=== PATIENT | female | born 1970 | race Asian ===

== ENCOUNTER 2016-04-11 10:17 | Emergency (ER) | payer OTHER ==
[~2016-04-11] VITALS: Ht 154.9 cm; Wt 42.5 kg
[2016-04-11] MEDS ORDERED: FentaNYL CITRATE-PF 100 MCG/2 ML VIAL ONE (11:47)
[2016-04-11] MEDS ORDERED: HEPARIN SODIUM 1000 UNITS/NS 500 ML ONE (11:47)
[2016-04-11] MEDS ORDERED: LIDOCAINE HCL/PF 1% 30 ML VIAL ONE (11:48)
[2016-04-11] MEDS ORDERED: ONDANSETRON HCL 4 MG/2 ML VIAL IVP ONE (15:00)
[2016-04-11] MEDS ORDERED: MORPHINE SULFATE 4 MG/ML SYRINGE IVP ONE (15:00)
[2016-04-11] MEDS ORDERED: LORazepam 1 MG TABLET PO ONE (15:15)
[2016-04-11] MEDS ORDERED: ONDANSETRON HCL 4 MG TABLET PO ONE (16:30)
[2016-04-11] MEDS ORDERED: OxyCODONE HCL/ACETAMINOPHEN 10-325 MG TABLET PO ONE (16:30)
[2016-04-11 16:45] VITALS: BP 110/75
== END 2016-04-11 17:01 | disposition home or self-care (01) ==
LOC: EMS 10:20
DX: J93.9 Pneumothorax, unspecified (principal); J90 Pleural effusion, not elsewhere classified
CPT/HCPCS: 32550; 36245; 36561; 71010; 76937; 76942; 99284; J1644; J3490; J3010

== ENCOUNTER 2016-04-15 05:54 | Emergency (ER) | payer OTHER ==
[~2016-04-15] VITALS: Ht 157.5 cm; Wt 43.2 kg
[2016-04-15] MEDS ORDERED: MORPHINE SULFATE 4 MG/ML SYRINGE IVP ONE (06:45)
[2016-04-15] MEDS ORDERED: SODIUM CHLORIDE 0.9% 1,000 ML IV ONE (06:45)
[2016-04-15] MEDS ORDERED: ONDANSETRON HCL 4 MG/2 ML VIAL IVP ONE (06:45)
[2016-04-15] MEDS ORDERED: HEPARIN SODIUM 1000 UNITS/NS 500 ML ONE (07:56)
[2016-04-15] MEDS ORDERED: IODIXANOL 320 MG/ML 50 ML VIAL ONE ×3 (07:56→16:46)
[2016-04-15 08:59] LABS: BASOPHILS % (AUTO) 0.3 % (0.0-2.0); EOSINOPHILS % (AUTO) 0.6 % (1.0-6.0); MEAN CORPUSCULAR HEMOGLOBIN 31.8 pg (26.0-34.0); MEAN CORPUSCULAR HGB CONC 33.3 G/dL (31.0-37.0); MEAN CORPUSCULAR VOLUME 96 fL (80-100); MONOCYTES # (AUTO) 0.4 K/uL (0.1-1.0); MONOCYTES % (AUTO) 6.6 % (2.0-9.0); NEUTROPHILS # (AUTO) 5.1 K/uL (1.8-7.7); NEUTROPHILS % (AUTO) 77.5 % (40.0-70.0); PLATELET COUNT (AUTO) 272 K/uL (150-450); RED BLOOD CELL COUNT(AUTO) 3.45 MIL/uL (4.00-5.20); RED CELL DISTRIBUTION WIDTH 12.5 % (11.5-14.5); WHITE BLOOD COUNT (AUTO) 6.5 K/uL (4.5-11.0)
[2016-04-15 09:05] LABS: PROTHROMBIN TIME 10.4 SEC (9.4-11.6)
[2016-04-15 09:15] LABS: ALANINE AMINOTRANSFERASE 16 U/L (12-78); ALBUMIN 2.8 g/dL (3.4-5.0); ANION GAP 9 mmol/L (8-16); ASPARTATE AMINOTRANSFERASE 18 U/L (15-37); BILIRUBIN,TOTAL 0.4 mg/dL (0.1-1.0); CALCIUM, TOTAL 8.4 mg/dL (8.8-10.5); CARBON DIOXIDE 29 mmol/L (22-29); CHLORIDE 104 mmol/L (98-107); CREATINE KINASE, TOTAL 31 U/L (26-192); CREATININE 0.53 mg/dL (0.60-1.30); GLOMERULAR FILTR. RATE CALC > 60 mL/min (>60); POTASSIUM 4.1 mmol/L (3.5-5.1); SODIUM SERUM 142 mmol/L (136-145); TOTAL PROTEIN, SERUM 5.7 g/dL (6.4-8.2)
[2016-04-15 09:18] LABS: B-TYPE NATRIURETIC PEPTIDE 12 pg/mL (0-100)
[2016-04-15 09:22] LABS: UREA NITROGEN, BLOOD 3 mg/dL (7-18)
[2016-04-15] MEDS ORDERED: SODIUM CHLORIDE 0.9% 500 ML IV ONE (09:35)
[2016-04-15] MEDS ORDERED: LIDOCAINE 1% 30 ML/SOD BICARB 8.4% 4 ML SQ ONE (09:47)
[2016-04-15] MEDS ORDERED: FentaNYL CITRATE-PF 100 MCG/2 ML VIAL IVP ONE ×5 (09:50→12:20)
[2016-04-15] MEDS ORDERED: MIDAZOLAM HCL 2 MG/2 ML VIAL IVP ONE ×5 (09:50→12:20)
[2016-04-15] MEDS ORDERED: IODIXANOL 320 MG/ML 100 ML VIAL IARTER ONE (10:10)
[2016-04-15] MEDS ORDERED: IODIXANOL 320 MG/ML 50 ML VIAL IARTER ONE ×3 (10:10)
[2016-04-15 15:57] VITALS: BP 115/71
[2016-04-15] MEDS ORDERED: SODIUM BICARBONATE 50 MEQ/50 ML VIAL ONE (16:46)
[2016-04-15] MEDS ORDERED: LIDOCAINE HCL/PF 1% 30 ML VIAL ONE (16:46)
[2016-04-15] MEDS ORDERED: MIDAZOLAM HCL 2 MG/2 ML VIAL ONE ×3 (16:46)
[2016-04-15] MEDS ORDERED: IODIXANOL 320 MG/ML 100 ML VIAL ONE (16:46)
[2016-04-15] MEDS ORDERED: FentaNYL CITRATE-PF 100 MCG/2 ML VIAL ONE ×3 (16:46)
== END 2016-04-15 16:52 | disposition home or self-care (01) ==
LOC: EMS 05:56
DX: J93.9 Pneumothorax, unspecified (principal); R04.2 Hemoptysis; C78.00 Secondary malignant neoplasm of unspecified lung; Z85.42 Personal history of malignant neoplasm of other parts of uterus
CPT/HCPCS: 36415; 71010; 75743; 80053; 82550; 83880; 84484; 85025; 85610; 85730; 93005; 96372; 96374; 96375; 96376; 99285; C1760; C1769 ×2; C1887 ×2; C1892; J1644; J2250; J3010; J3490 ×2; Q9967 ×2

== ENCOUNTER 2016-05-27 07:00 | Emergency (ER) | payer OTHER ==
[~2016-05-27] VITALS: Ht 154.9 cm; Wt 41.4 kg
[2016-05-27] MEDS ORDERED: HYDROCODONE/ACETAMINOPHEN 5-325 MG TABLET PO ONE (08:00)
[2016-05-27] MEDS ORDERED: ONDANSETRON HCL 4 MG TABLET PO ONE (08:00)
[2016-05-27 08:43] LABS: BASOPHILS % (AUTO) 0.4 % (0.0-2.0); EOSINOPHILS % (AUTO) 0.3 % (1.0-6.0); HEMATOCRIT 34.3 % (36-46); HEMOGLOBIN 11.5 g/dL (12.0-16.0); LYMPHOCYTES # (AUTO) 0.6 K/uL (1.0-4.8); MEAN CORPUSCULAR HEMOGLOBIN 31.5 pg (26.0-34.0); MEAN CORPUSCULAR HGB CONC 33.6 G/dL (31.0-37.0); MEAN CORPUSCULAR VOLUME 94 fL (80-100); MONOCYTES # (AUTO) 0.6 K/uL (0.1-1.0); MONOCYTES % (AUTO) 9.3 % (2.0-9.0); NEUTROPHILS # (AUTO) 5.2 K/uL (1.8-7.7); PLATELET COUNT (AUTO) 250 K/uL (150-450); RED BLOOD CELL COUNT(AUTO) 3.65 MIL/uL (4.00-5.20); RED CELL DISTRIBUTION WIDTH 14.4 % (11.5-14.5); WHITE BLOOD COUNT (AUTO) 6.5 K/uL (4.5-11.0)
[2016-05-27 08:53] LABS: ANION GAP 11 mmol/L (8-16); CALCIUM, TOTAL 9.7 mg/dL (8.8-10.5); CARBON DIOXIDE 28 mmol/L (22-29); CHLORIDE 101 mmol/L (98-107); CREATININE 0.56 mg/dL (0.60-1.30); GLOMERULAR FILTR. RATE CALC > 60 mL/min (>60); POTASSIUM 4.1 mmol/L (3.5-5.1); SODIUM SERUM 140 mmol/L (136-145); UREA NITROGEN, BLOOD 11 mg/dL (7-18)
[2016-05-27 08:54] LABS: PROTHROMBIN TIME 10.7 SEC (9.4-11.6)
[2016-05-27 09:05] LABS: ALANINE AMINOTRANSFERASE 18 U/L (12-78); ALBUMIN 3.3 g/dL (3.4-5.0); TOTAL PROTEIN, SERUM 7.9 g/dL (6.4-8.2)
[2016-05-27 09:30] LABS: ASPARTATE AMINOTRANSFERASE 23 U/L (15-37)
[2016-05-27 10:06] LABS: BILIRUBIN,TOTAL 0.4 mg/dL (0.1-1.0)
[2016-05-27] MEDS ORDERED: HEPARIN SODIUM 1000 UNITS/NS 500 ML ONE (10:21)
[2016-05-27] MEDS ORDERED: LIDOCAINE HCL/PF 1% 30 ML VIAL ONE (10:21)
[2016-05-27] MEDS ORDERED: IODIXANOL 320 MG/ML 100 ML VIAL ONE (10:21)
[2016-05-27] MEDS ORDERED: FentaNYL CITRATE-PF 100 MCG/2 ML VIAL ONE ×2 (11:05→12:26)
[2016-05-27] MEDS ORDERED: MIDAZOLAM HCL 2 MG/2 ML VIAL ONE ×2 (11:06→12:26)
[2016-05-27] MEDS ORDERED: IODIXANOL 320 MG/ML 50 ML VIAL ONE ×2 (12:04→12:37)
[2016-05-27] MEDS ORDERED: OxyCODONE HCL/ACETAMINOPHEN 5-325 MG TABLET PO ONE (14:00)
[2016-05-27] MEDS ORDERED: HYDROmorphone 2 MG/ML SYRINGE IVP ONE (14:00)
[2016-05-27] MEDS ORDERED: ONDANSETRON HCL 4 MG/2 ML VIAL ONE (14:05)
[2016-05-27 15:20] VITALS: BP 104/72
[2016-05-27] MEDS ORDERED: ONDANSETRON HCL 4 MG/2 ML VIAL IVP ONE (16:15)
== END 2016-05-27 18:16 | disposition home or self-care (01) ==
LOC: EMS 07:01
DX: R04.2 Hemoptysis (principal); C78.00 Secondary malignant neoplasm of unspecified lung; Z85.42 Personal history of malignant neoplasm of other parts of uterus; M41.9 Scoliosis, unspecified
CPT/HCPCS: 36415; 71010; 80053; 85025; 85610; 85730; 86850; 86900; 86901; 93005; 96374; 99285; J1170; J1644; J2250; J2405; J3010; J3490; Q9967 ×2; 75774; Q0162